=== PATIENT | male | born 1975 | race Caucasian/White ===

== ENCOUNTER 2023-02-27 23:26 | Emergency (ER) | payer BC, OTHER ==
[2023-02-28] MEDS ORDERED: Ketorolac Tromethamine 30 MG/ML VIAL ONE (00:38)
== END 2023-02-28 01:30 | disposition home or self-care (01) ==
LOC: CSHERS 23:26
DX: M54.50 Low back pain, unspecified (principal); E11.9 Type 2 diabetes mellitus without complications; E78.5 Hyperlipidemia, unspecified; I10 Essential (primary) hypertension; I25.10 Atherosclerotic heart disease of native coronary artery without angina pectoris; F17.220 Nicotine dependence, chewing tobacco, uncomplicated
CPT/HCPCS: 96372; 99283; J1885